=== PATIENT | female | born 1970 | race Caucasian/White ===

== ENCOUNTER 2020-07-25 11:45 | Emergency (ER) | payer MEDICAID, SELFPAY ==
--- NOTE | 2020-07-25 14:07 | RAD REPORT ---
EXAM DESCRIPTION: RAD - Ribs Unil W/CXR - 07/25/2020 1:27 pm CLINICAL HISTORY: right thoracic pain s/p fall Fall, right-sided chest pain COMPARISON: CHEST SINGLE VIEW dated 03/11/2011 FINDINGS: The lungs are clear. The heart size is normal. No displaced rib fracture evident.
--- NOTE | 2020-07-25 14:21 | ER ---
Nurse's Notes [facility] Name: Jeannette Malagon Age: 50 yrs Sex: Female : 1970 Arrival Date: 07/25/2020 Time: 11:47 Bed 23 Private MD: Diagnosis: Strain of muscle and tendon of back wall of thorax Presentation: 07/25 12:01 Chief complaint: Patient states: Slipped on stairs yesterday, fell forward and I was ca1 holding big trays and the trays may have hit me. Woke up this morning sore and it hurts to breathe on the upper R side of my back. Denies cough. Coronavirus screen: Client denies travel out of the [place] in the last 14 days. At this time, the client does not indicate any symptoms associated with coronavirus-19. Ebola Screen: Patient negative for fever greater than or equal to 101.5 degrees Fahrenheit, and additional compatible Ebola Virus Disease symptoms Patient denies exposure to infectious person. Patient denies travel to an Ebola-affected area in the 21 days before illness onset. No symptoms or risks identified at this time. Initial Sepsis Screen: Does the patient meet any 2 criteria? No. Patient's initial sepsis screen is negative. Does the patient have a suspected source of infection? No. Patient's initial sepsis screen is negative. Risk Assessment: Do you want to hurt yourself or someone else? Patient reports no desire to harm self or others. Onset of symptoms was July 25, 2020. 12:01 Method Of Arrival: Ambulatory ca1 12:01 Acuity: JEFFRY 4 ca1 Triage Assessment: 13:00 Respiratory: Onset: The symptoms/episode began/occurred. iw 14:00 General: Appears in no apparent distress. Behavior is calm. Respiratory: Reports the iw patient has mild shortness of breath. 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 - Social history:: Smoking status: Patient reports the use of cigarette tobacco products, smokes one pack cigarettes per day. - Family history:: not pertinent. - Hospitalizations: : No recent hospitalization is reported. Screenin:34 Abuse screen: Denies threats or abuse. Denies injuries from another. Nutritional iw screening: No deficits noted. Tuberculosis screening: No symptoms or risk factors identified. Fall Risk None identified. Assessment: 13:00 Respiratory: Airway is patent. iw 13:00 General: Appears in no apparent distress. Behavior is calm, cooperative. Pain: iw Complains of pain in back. Neuro: Level of Consciousness is awake, alert, obeys commands, Oriented to person, place, time, situation, Moves all extremities. Full function. Cardiovascular: Rhythm is regular. Respiratory: Respiratory effort is even, unlabored, Breath sounds are clear bilaterally. Derm: Skin is intact, is healthy with good turgor. Musculoskeletal: Range of motion: intact in all extremities. 14:34 Reassessment: Patient appears in no apparent distress at this time. Patient and/or iw family updated on plan of care and expected duration. Pain level reassessed. Patient is alert, oriented x 3, equal unlabored respirations, skin warm/dry/pink. Vital Signs: 12:01 BP 97 / 78; Pulse 81; Resp 16 S; Temp 98.3(TE); Pulse Ox 98% on R/A; Weight 86.18 kg ca1 (R); Height 5 ft. 2 in. (157.48 cm) (R); Pain 8/10; 12:06 BP 116 / 85; ca1 12:01 Body Mass Index 34.75 (86.18 kg, 157.48 cm) ca1 ED Course: 11:47 Patient arrived in ED. ag5 12:05 Triage completed. ca1 12:06 Arm band placed on right wrist. ca1 12:34 Nuvia Espinal, MIL is Primary Nurse. iw 12:44 Judah Cunha MD is Attending Physician. rn 13:00 Patient has correct armband on for positive identification. iw 14:33 No provider procedures requiring assistance completed. Patient did not have IV access iw during this emergency room visit. Administered Medications: No medications were administered Outcome: 14:20 Discharge ordered by . rn 14:34 Discharged to home ambulatory. iw 14:34 Condition: good 14:34 Discharge instructions given to patient, Instructed on discharge instructions, follow up and referral plans. Demonstrated understanding of instructions, follow-up care. 14:37 Patient left the ED. iw Signatures: Nuvia Espinal RN RN iw Nieto, Roman, MD MD rn Acob, MIL Montalvo RN, Ajare ag5 Corrections: (The following items were deleted from the chart) 07/26 09:16 12 13:00 Respiratory: Airway is patent lianne
--- NOTE | 2020-07-25 14:21 | EDPHYS ---
Physician Documentation [facility] Name: Jeannette Malagon Age: 50 yrs Sex: Female : 1970 Arrival Date: 07/25/2020 Time: 11:47 Bed 23 Private MD: ED Physician Judah Cunha HPI: 07/25 14:16 This 50 yrs old Female presents to ER via Ambulatory with complaints of fall. rn 14:16 The patient has shortness of breath at rest, with light activity. rn 14:17 Onset: The symptoms/episode began/occurred yesterday. The patient's shortness of breath rn is aggravated by movement and deep breath. Severity of symptoms: At their worst the symptoms were mild in the emergency department the symptoms are unchanged. The patient has not experienced similar symptoms in the past. Reports walking down stairs yesterday, mis-stepped, does not think she fell with direct trauma because didn't spill trays she was carrying, but reports right/mid back pain with movement and deep breath. . 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 - Social history:: Smoking status: Patient reports the use of cigarette tobacco products, smokes one pack cigarettes per day. - Family history:: not pertinent. - Hospitalizations: : No recent hospitalization is reported. ROS: 14:17 Constitutional: Negative for fever, chills, and weight loss, Neck: Negative for injury, rn pain, and swelling, Cardiovascular: Negative for chest pain, palpitations, and edema, Respiratory: Negative for shortness of breath, cough, wheezing Abdomen/GI: Negative for abdominal pain, nausea, vomiting, diarrhea, and constipation, Back: + right subscapular pain MS/Extremity: Negative for injury and deformity, Skin: Negative for injury, rash, and discoloration, Neuro: Negative for headache, weakness, numbness, tingling, and seizure. Exam: 14:17 Constitutional: This is a well developed, well nourished patient who is awake, alert, rn and in no acute distress. Cardiovascular: Regular rate and rhythm. No pulse deficits. Respiratory: No increased work of breathing, no retractions or nasal flaring. Back: No spinal tenderness. Vital Signs: 12:01 BP 97 / 78; Pulse 81; Resp 16 S; Temp 98.3(TE); Pulse Ox 98% on R/A; Weight 86.18 kg ca1 (R); Height 5 ft. 2 in. (157.48 cm) (R); Pain 8/10; 12:06 BP 116 / 85; ca1 12:01 Body Mass Index 34.75 (86.18 kg, 157.48 cm) ca1 MDM: 12:44 Patient medically screened. rn 14:17 Differential diagnosis: muscle strain, rib fracture. Data reviewed: vital signs, nurses rn notes, radiologic studies, plain films, and as a result, I will discharge patient. Counseling: I had a detailed discussion with the patient and/or guardian regarding: the historical points, exam findings, and any diagnostic results supporting the discharge/admit diagnosis, radiology results, the need for outpatient follow up, to return to the emergency department if symptoms worsen or persist or if there are any questions or concerns that arise at home. Special discussion: I discussed with the patient/guardian in detail that at this point there is no indication for admission to the hospital. It is understood, however, that if the symptoms persist or worsen the patient needs to return immediately for re-evaluation. 07/25 13:10 Order name: Ribs Unil W/CXR; Complete Time: 14:16 EDMS Administered Medications: No medications were administered Disposition: 07/25/20 14:20 Discharged to Home. Impression: Strain of muscle and tendon of back wall of thorax. - Condition is Stable. - Discharge Instructions: Muscle Strain. - Medication Reconciliation Form, Thank You Letter, Antibiotic Education, Prescription Opioid Use form. - Follow up: Private Physician; When: As needed; Reason: Recheck today's complaints, Re-evaluation by your physician. - Problem is new. - Symptoms have improved. Signatures: Dispatcher [employer] EDMS Nuvia Espinal RN RN iw Judah Cunha MD MD rn Acob, MIL Montalvo RN ca1 Corrections: (The following items were deleted from the chart) 13:10 12:49 Ribs Right+RAD.RAD.BRZ ordered. EDMS EDMS 14:37 14:20 07/25/2020 14:20 Discharged to Home. Impression: Strain of muscle and tendon of iw back wall of thorax. Condition is Stable. Forms are Medication Reconciliation Form, Thank You Letter, Antibiotic Education, Prescription Opioid Use. Follow up: Private Physician; When: As needed; Reason: Recheck today's complaints, Re-evaluation by your physician. Problem is new. Symptoms have improved. rn
[2020-07-26 22:46] VITALS: TEMP 98.3; O2SAT 98
[2020-07-26 22:47] VITALS: BP 116/85
== END 2020-07-25 14:37 | disposition home or self-care (01) ==
LOC: ER 11:45
DX: S29.012A Strain of muscle and tendon of back wall of thorax, initial encounter (principal); W10.9XXA Fall (on) (from) unspecified stairs and steps, initial encounter; Y93.89 Activity, other specified; Y92.9 Unspecified place or not applicable; F17.210 Nicotine dependence, cigarettes, uncomplicated; Z88.0 Allergy status to penicillin; Z88.5 Allergy status to narcotic agent; Z91.048 Other nonmedicinal substance allergy status
CPT/HCPCS: 71101; 99281

== ENCOUNTER 2021-05-04 14:15 | Emergency (ER) | payer SELFPAY ==
[2021-05-04] MEDS ORDERED: KETOROLAC 30 MG/ML INJ ONE (15:19)
[2021-05-04] MEDS ORDERED: HYDROCODONE/APAP 5/325 MG TAB ONE (15:19)
--- NOTE | 2021-05-04 15:58 | RAD REPORT ---
EXAM DESCRIPTION: RAD - Thoracic Spine Ap/Lat - 05/04/2021 3:46 pm CLINICAL HISTORY: Back pain FINDINGS: Mild scoliosis. No fracture or dislocation seen. Mild spondylosis involves the thoracic spine
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
[2021-05-04 16:25] VITALS: TEMP 98.7; O2SAT 100
[2021-05-04 16:26] VITALS: BP 98/57
== END 2021-05-04 16:19 | disposition home or self-care (01) ==
LOC: ER 14:15
DX: S29.012A Strain of muscle and tendon of back wall of thorax, initial encounter (principal); F17.210 Nicotine dependence, cigarettes, uncomplicated; Z88.0 Allergy status to penicillin; Z88.5 Allergy status to narcotic agent; Z91.048 Other nonmedicinal substance allergy status
CPT/HCPCS: 72070; 96372; 99283